=== PATIENT | female | born 1980 | race Caucasian/White ===

== ENCOUNTER 2022-07-16 13:02 | Outpatient (CLI) | payer OTHER ==
[2022-07-16] MEDS ORDERED: ALBUTEROL 1 PUFF INH STA (14:29)
== END 2022-07-16 13:03 | disposition home or self-care (01) ==
LOC: RT 13:02
PROVIDERS: ATTEND Physician Assistant
DX: R06.09 Other forms of dyspnea (principal)
CPT/HCPCS: 94060

== ENCOUNTER 2022-07-16 14:09 | Outpatient (CLI) | payer OTHER ==
--- NOTE | 2022-07-17 10:08 | XRAY Report ---
PROCEDURE: Chest 2 View X-Ray INDICATIONS: SHORTNESS OF BREATH TECHNIQUE: 2 views of the chest were acquired. COMPARISON: None FINDINGS: Lungs and pleura: No pleural effusions or pneumothorax. Lungs are clear. Mediastinum: Mediastinal contours are normal. Heart size is normal. Bones and chest wall: No suspicious bony abnormalities. Soft tissues appear unremarkable. IMPRESSION: No acute cardiopulmonary abnormality. Reviewed by: Adrian Rapp MD on 07/17/2022 10:06 AM [facility] Approved by: Adrian Rapp MD on 07/17/2022 10:06 AM [facility] Station ID: [id number]
== END 2022-07-16 14:10 | disposition home or self-care (01) ==
LOC: DI 14:09
PROVIDERS: ATTEND Physician Assistant
DX: R06.09 Other forms of dyspnea (principal)
CPT/HCPCS: 94060

== ENCOUNTER 2023-01-12 11:26 | Outpatient (CLI) | payer OTHER ==
[2023-01-12 18:32] LABS: % IRON SATURATION 19 % (20-50); IRON 55 ug/dL (28-170); TOTAL IRON BINDING CAPACITY 287 ug/dL (250-450); TRANSFERRIN 205 mg/dL (192-382)
[2023-01-12 18:40] LABS: THYROID STIMULATING HORMONE 2.57 uIU/mL (0.34-5.60)
[2023-01-12 18:41] LABS: FREE T3 3.2 pg/mL (2.5-3.9)
[2023-01-12 18:42] LABS: FREE T4 (FREE THYROXINE) 1.1 ng/dL (0.58-1.64)
[2023-01-12 18:46] LABS: FERRITIN 78.7 ng/mL (11.0-306.8)
== END 2023-01-12 11:27 | disposition home or self-care (01) ==
LOC: LAB.N 11:26
PROVIDERS: ATTEND Physician Assistant
DX: L60.9 Nail disorder, unspecified (principal); R63.5 Abnormal weight gain
CPT/HCPCS: 36415; 82728; 83540; 84439; 84443; 84466; 84481

== ENCOUNTER 2023-09-14 12:34 | Outpatient (CLI) | payer OTHER ==
[2023-09-14 17:54] LABS: BASOPHILS % (AUTO) 0.3 %; EOSINOPHILS # (AUTO) 0.3 10^3/uL (0.0-0.7); EOSINOPHILS % (AUTO) 2.6 %; HGB - HEMOGLOBIN 13.1 g/dL (12.0-16.0); LYMPHOCYTES # (AUTO) 3.6 10^3/uL (1.5-3.5); LYMPHOCYTES % (AUTO) 27.9 %; MEAN CORPUSCULAR HEMOGLOBIN 26.6 pg (27.0-31.0); MEAN CORPUSCULAR HGB CONC 30.5 g/dL (32.0-36.0); MEAN CORPUSCULAR VOLUME 87.2 fL (81.0-99.0); MEAN PLATELET VOLUME 10.2 fL (7.9-10.8); MONOCYTES # (AUTO) 0.6 10^3/uL (0.0-1.0); MONOCYTES % (AUTO) 4.4 %; NEUTROPHILS # (AUTO) 8.4 10^3/uL (1.5-6.6); NEUTROPHILS % (AUTO) 64.2 %; PLT - PLATELET COUNT 489 10^3/uL (130-450); RED BLOOD COUNT 4.93 10^6/uL (4.20-5.40); WHITE BLOOD COUNT 13.1 x10^3/uL (4.8-10.8)
[2023-09-14 18:34] LABS: THYROID STIMULATING HORMONE 2.81 uIU/mL (0.34-5.60)
[2023-09-14 19:00] LABS: ALBUMIN 4.3 g/dL (3.2-5.5); ALBUMIN/GLOBULIN RATIO 1.3 (1.0-2.2); ALKALINE PHOSPHATASE 103 IU/L (42-121); ALT ALANINE AMINOTRANSFERASE 16 IU/L (10-60); AST ASPARTATE AMINOTRANSFERASE 14 IU/L (10-42); BILIRUBIN,TOTAL 0.5 mg/dL (0.2-1.0); BUN - BLOOD UREA NITROGEN 10 mg/dL (6-20); CALCIUM 9.3 mg/dL (8.5-10.3); CARBON DIOXIDE - CO2 26 mmol/L (21-32); CHLORIDE 101 mmol/L (101-111); CHOL/HDL RATIO 4.9 (<4.4); CHOLESTEROL 171 mg/dL; CREATININE 0.8 mg/dL (0.6-1.3); GFR - MDRD 78 (>89); GLUCOSE 96 mg/dL (74-104); HDL CHOLESTEROL 35 mg/dL; LDL CHOLESTEROL,CALCULATED 109 mg/dL; LDL/HDL RATIO 3.1 (<4.4); POTASSIUM 3.9 mmol/L (3.5-4.5); SODIUM 135 mmol/L (135-145); TOTAL PROTEIN 7.6 g/dL (6.4-8.9); TRIGLYCERIDES 137 mg/dL (48-352); VLDL CHOLESTEROL 27 mg/dL
[2023-09-14 22:31] LABS: ESTIMATED AVERAGE GLUCOSE 108 mg/dL (70-100); HEMOGLOBIN A1c% 5.4 % (4.27-6.07)
== END 2023-09-14 12:35 | disposition home or self-care (01) ==
LOC: LAB.N 12:34
PROVIDERS: ATTEND Physician Assistant
DX: Z13.9 Encounter for screening, unspecified (principal); N92.6 Irregular menstruation, unspecified; R73.01 Impaired fasting glucose
CPT/HCPCS: 36415; 80050; 80061; 83001; 83036; 83721